=== PATIENT | male | born 1970 | race Two or more races ===

== ENCOUNTER 2025-07-11 23:32 | Inpatient (IN) | payer BC, OTHER ==
[~2025-07-11] VITALS: Ht 167.6 cm; Wt 88.5 kg
[~2025-07-11 23:32] MED LIST: ALBU18HF2 IH; FLUT1DIS3 INH; LEVO-65 MT
[2025-07-11 23:36] VITALS: O2SAT 98
[2025-07-12 00:18] LABS: BASOPHILS % 0.8 % (0.0-2.0); EOSINOPHILS % 1.7 % (0.0-5.0); HEMATOCRIT. 41.8 % (42.0-52.0); HEMOGLOBIN. 14.1 g/dL (14.0-18.0); LYMPHOCYTES % 30.0 % (20.0-50.0); MEAN PLATELET VOLUME 7.9 fl (7.4-10.4); MONOCYTES % 8.8 % (2.0-8.0); NEUTROPHILS % 58.7 % (40.0-76.0); PLATELET 289 x1000/uL (130-400); RED BLOOD CELL COUNT 4.74 mill/uL (4.7-6.1); RED CELL DISTRIBUTION WIDTH 13.1 % (11.6-14.6)
[2025-07-12 00:29] LABS: CREATININE 0.9 mg/dL (0.6-1.3)
[2025-07-12 00:30] LABS: PROTEIN TOTAL 7.0 g/dL (6.0-8.3); UREA NITROGEN BLOOD 10 mg/dL (9-23)
[2025-07-12 00:31] LABS: ASPARTATE AMINOTRANSFERASE 19 IU/L (<34); TROPONIN I HIGH SENSITIVITY < 4 ng/L (3.0-53)
[2025-07-12 00:32] LABS: BILIRUBIN DIRECT < 0.1 mg/dL (<=3.0); BILIRUBIN TOTAL 0.4 mg/dL (0.1-1.0)
[2025-07-12] MEDS: ONDANSETRON HCL 4MG/2ML INJ IV ONE (00:45)
[2025-07-12] MEDS: MORPHINE SULFATE 4 MG/ML INJ (FOR IV/IM USE) IV ONE (00:46)
[2025-07-12] MEDS: METRONIDAZOLE 500 MG PREMIX 100 ML IV ONE (01:48)
[2025-07-12] MEDS: LEVOFLOXACIN 750MG PREMIX 150 ML IV ONE (02:33)
[2025-07-12 03:55] VITALS: BP 124/83; PULSE 67; RESP 18; TEMP 36.5; TEMP 36.5292; O2SAT 100
[2025-07-12] MEDS ORDERED: ACETAMINOPHEN 325MG TABLET PO PRN (04:15)
[2025-07-12] MEDS ORDERED: ONDANSETRON HCL 4MG/2ML INJ IV PRN (04:15)
[2025-07-12] MEDS ORDERED: DOCUSATE SODIUM 100MG CAPSULE PO PRN (04:15)
[2025-07-12] MEDS ORDERED: CLONIDINE 0.1MG TABLET PO PRN (04:15)
[2025-07-12] MEDS ORDERED: MAGNESIUM/ALUMINUM HYDROXIDE/SIMETHICONE 30ML UDC PO PRN (04:15)
[2025-07-12 04:20] LABS: CLARITY URINE CLEAR (CLEAR); COLOR URINE YELLOW (YELLOW); GLUCOSE URINE NEGATIVE (NEGATIVE); KETONES URINE NEGATIVE (NEGATIVE); LEUKOCYTE ESTERASE URINE NEGATIVE (NEGATIVE); NITRITE URINE NEGATIVE (NEGATIVE); OCCULT BLOOD URINE NEGATIVE (NEGATIVE); PH URINE 5.5 (4.5-8.0); PROTEIN URINE NEGATIVE (NEGATIVE); SPECIFIC GRAVITY URINE 1.021 (1.005-1.030); UROBILINOGEN URINE 0.2 E.U./dL (0.2-1.0)
[2025-07-12] MEDS: SODIUM CHLORIDE 0.9% 1,000 ML IV SCH (05:09)
[2025-07-12] MEDS ORDERED: INFLUENZA VACCINE 05/PF 0.5 ML SYRINGE IM ONE (05:30)
[2025-07-12 08:00] VITALS: BP 125/78; PULSE 87; RESP 18; TEMP 36; O2SAT 99
[2025-07-12] MEDS: POLYETHYLENE GLYCOL 3350 (17GM) 1 DOSE PACK PO SCH (08:31)
[2025-07-12] MEDS: THIAMINE HCL 100MG TABLET PO SCH (08:31)
[2025-07-12] MEDS: MULTIVITAMINS,THER W-MINERALS TABLET PO SCH (08:32)
[2025-07-12] MEDS: FOLIC ACID 1MG TABLET PO SCH (08:32)
[2025-07-12] MEDS: PANTOPRAZOLE SODIUM 40 MG/VIAL IV SCH (08:32)
[2025-07-12] MEDS: ACETAMINOPHEN 325MG TABLET PO PRN (11:32)
[2025-07-12] MEDS: METRONIDAZOLE 500 MG PREMIX 100 ML IV SCH (11:32)
[2025-07-12 12:00] VITALS: BP 124/81; PULSE 96; RESP 18; TEMP 36.2; O2SAT 98
[2025-07-12] MEDS ORDERED: METR-167 PO (13:02)
[2025-07-12] MEDS ORDERED: LEVO750T68 PO (13:02)
[2025-07-12] MEDS ORDERED: PANT40TA51 MT (13:03)
[2025-07-12 14:04] LABS: CREATININE 0.9 mg/dL (0.6-1.3); UREA NITROGEN BLOOD 9 mg/dL (9-23)
[2025-07-12 14:05] LABS: CREATINE KINASE MB FRACTION < 0.5 ng/mL (0.5-3.6); TROPONIN I HIGH SENSITIVITY < 4 ng/L (3.0-53)
[2025-07-12 14:12] LABS: VITAMIN B12 SERUM 384 pg/mL (211-911)
[2025-07-12 16:00] VITALS: BP 112/76; PULSE 68; RESP 18; TEMP 36; O2SAT 96
[2025-07-12 20:00] VITALS: BP 126/76; PULSE 72; RESP 18; TEMP 36.4; O2SAT 99
[2025-07-13] MEDS: LEVOFLOXACIN 750MG PREMIX 150 ML IV SCH (02:28)
[2025-07-13 04:00] VITALS: BP 100/60; PULSE 66; RESP 18; TEMP 36.3; O2SAT 99
[2025-07-13 08:00] VITALS: BP 115/78; PULSE 56; RESP 18; TEMP 36.2; O2SAT 100
[2025-07-13 08:19] LABS: BASOPHILS % 0.3 % (0.0-2.0); EOSINOPHILS % 2.3 % (0.0-5.0); HEMATOCRIT. 42.2 % (42.0-52.0); HEMOGLOBIN. 14.2 g/dL (14.0-18.0); LYMPHOCYTES % 25.8 % (20.0-50.0); MEAN PLATELET VOLUME 8.3 fl (7.4-10.4); MONOCYTES % 9.6 % (2.0-8.0); NEUTROPHILS % 62.0 % (40.0-76.0); PLATELET 244 x1000/uL (130-400); RED BLOOD CELL COUNT 4.82 mill/uL (4.7-6.1); RED CELL DISTRIBUTION WIDTH 13.3 % (11.6-14.6)
[2025-07-13 08:29] LABS: PROTEIN TOTAL 6.1 g/dL (6.0-8.3)
[2025-07-13 08:30] LABS: ASPARTATE AMINOTRANSFERASE 45 IU/L (<34); BILIRUBIN DIRECT 0.2 mg/dL (<=3.0); BILIRUBIN TOTAL 0.7 mg/dL (0.1-1.0)
[2025-07-13 08:42] LABS: CREATININE 0.8 mg/dL (0.6-1.3); TRIGLYCERIDE 93 mg/dL (0-150); UREA NITROGEN BLOOD 12 mg/dL (9-23)
[2025-07-13 08:43] LABS: LDL CHOLESTEROL 133 mg/dL (5-100)
[2025-07-13 08:44] LABS: PHOSPHORUS 3.2 mg/dL (2.5-4.9)
[2025-07-13 08:46] LABS: T4 FREE 0.90 ng/dL (0.89-1.76)
[2025-07-13 11:00] VITALS: BP 115/78; PULSE 56; RESP 18; TEMP 97.1
[2025-07-13 12:00] VITALS: BP 120/69; PULSE 64; RESP 17; TEMP 36.4; O2SAT 99
[2025-07-13 12:36] LABS: BG BASE EXCESS -1.1 mmol/L (-2.0-3.0); BG CARBOXYHEMOGLOBIN 1.6 % (0.5-1.5); BG DEOXYHEMOGLOBIN 5.0 % (0.0-5.0); BG FRACTION INSPIRED OXYGEN 21; BG HCO3 ACT 22.6 mmol/L (21.0-28.0); BG METHEMOGLOBIN 0.1 % (0.5-1.5); BG OXYGEN SATURATION 94.9 % (94.0-98.0); BG OXYHEMOGLOBIN 93.3 % (94.0-98.0); BG PCO2 34.6 mmHg (35.0-48.0); BG PH 7.432 (7.350-7.450); BG PO2 70.5 mmHg (83.0-108.0); BG SAMPLE SITE RIGHT BRACHIAL; BG TOTAL HEMOGLOBIN 14.7 g/dL (13.5-17.5); BG VENT MODE ROOM AIR
[2025-07-13] MEDS ORDERED: LEVOFLOXACIN 750MG PREMIX 150 ML IV SCH (23:00)
== END 2025-07-13 12:57 | disposition home or self-care (01) | DRG 392 ==
LOC: ER 23:32 → EDBEDREQTM 07-12 02:55 → EDBEDREQ 07-12 02:55 → 7EST 07-12 03:52
PROVIDERS: ADMIT Internal Medicine; ATTEND Internal Medicine
DX: K57.32 Diverticulitis of large intestine without perforation or abscess without bleeding (principal); K27.9 Peptic ulcer, site unspecified, unspecified as acute or chronic, without hemorrhage or perforation; K59.04 Chronic idiopathic constipation; Z79.899 Other long term (current) drug therapy
CPT/HCPCS: 36415; 36600; 71045; 74176; 80048; 80061; 80076; 81003; 82040; 82375; 82550; 82553; 82607; 82805; 83605; 83735; 84100; 84145; 84439; 84443; 84481; 84484; 85025; 93005; 99285; J1956; J2270; J2405; J2470; J3490; J7030